=== PATIENT | female | born 1960 | race Caucasian/White ===

== ENCOUNTER 2016-12-17 19:59 | Emergency (ER) | payer OTHER ==
[~2016-12-17] VITALS: Ht 162.6 cm; Wt 73.6 kg
[~2016-12-17 19:59] MED LIST changes: -AGMUDL4005 PO; -NITR-5 PO
[2016-12-17 20:02] VITALS: BP 138/87; TEMP 37.2; Ht 162.6 cm; Wt 73.6 kg
--- NOTE | 2016-12-17 20:32 | EMERGENCY ROOM VISIT NOTE ---
History Report prepared by Brigid: Arlen Khan Under the Supervision of: Dr. Ayaan Marino M.D. First contact with patient: 20:08 Chief Complaint: URINARY SYMPTOMS Stated Complaint: PAIN IN STOMACH, HEADACHE, WEAKNESS Nursing Triage Summary: Patient states "I'm just been not feeling well. I went and got one of those OTC urinary tract things and it was positive. My sister in law is a nurse practitioner and said I need to get an antibiotic tonight." History of Present Illness The patient is a 56 year old female who presents to the Emergency Room with complaints of worsening urinary symptoms that started this morning. She is experiencing heaviness in her groin and increased urinary frequency. She denies burning with urination. The patient states that she took an hudv-rdq-atqjsoo urinary tract test and it was positive. Her vurvqq-la-fwt is a nurse practitioner and recommended that she come into the ED to get antibiotics. She is also experiencing a headache and "shakes." She denies abdominal pain and back pain. She also denies lower extremity pain or edema. The patient denies bruising, bleeding, or hitting her head recently. The patient adds that she had blood work done earlier today as part of a routine checkup. Source of History: patient Onset: this morning Quality: other (urinary symptoms) Timing: worsening Associated Symptoms: + headache, No abdominal pain, No back pain Note: "shakes", heaviness in groin, no lower extremity pain or edema Review of Systems See HPI for pertinent positives & negatives. A total of 10 systems reviewed and were otherwise negative. Past Medical & Surgical Medical Problems: (1) Parathyroid disorder Surgical Problems: (1) History of dilation and curettage (2) History of foot surgery Old medical records were reviewed. Nurse's notes were reviewed and I agree with. No history of blood clotting disorders. Family History Diabetes mellitus Heart disease Social History Smoking Status: Never Smoker Alcohol Use: occasionally Drug Use: none Marital Status: Housing Status: lives with family Occupation Status: employed Current/Historical Medications Scheduled Amoxicillin/Clavulanate Potas (Augmentin 400MG/5ML), 10 ML PO BID Cholecalciferol (Vitamin D), 1,000 INTER.UNIT PO DAILY Ranitidine Hcl (Zantac), 10 ML PO DAILY [Fish Oil], 5 ML PO DAILY [Iron], 1 TAB PO DAILY Scheduled PRN Ondansetron (Zofran Odt), 4 MG SL Q6 PRN for Nausea or Vomiting Allergies Uncoded Allergies: N (Allergy, Unknown, 12/29/02) SEASONAL (Allergy, Unknown, 12/29/02) VANTA (Allergy, Unknown, 12/29/02) Physical Exam Vital Signs Date Time Temp Pulse Resp B/P Pulse Ox O2 Delivery O2 Flow Rate FiO2 12/17/16 21:40 78 18 98 12/17/16 20:02 37.2 86 18 138/87 99 Room Air Physical Exam General: Well developed well nourished non-ill appearing middle-aged female in no acute distress, breathing comfortably on room air. Normal speech HEENT: Normal cephalic atraumatic. Pupils are equal round and reactive to light. Extraocular movements are intact. Oropharynx is pink with moist mucous membranes. No swelling of the mouth lips or tongue. Neck: Supple with a midline trachea. No meningeal signs or stiffness, no JVD or bruits. No Stridor. Chest: Clear to auscultation bilaterally. No wheezes or rhonchi. No increased work of breathing. Heart: regular rate and rhythm. Abdomen: Soft nontender, nondistended without rebound guarding or rigidity. Extremities: No cyanosis clubbing or edema. No calf tenderness or assymetry Spine/Back. Non tender to palpation. No CVA tenderness Skin: Good turgor without rashes. No petechiae. Chronic skin lesions which are unchanged. Neurologic exam: Cranial nerves two through 12 are intact. Motor and sensation are intact and symmetrical throughout. Medical Decision & Procedures Laboratory Results Test 12/17/16 20:15 Urine Color YELLOW Urine Appearance CLEAR (CLEAR) Urine pH 7.5 (4.5-7.5) Urine Specific [place] 1.010 (1.000-1.030) Urine Protein NEG (NEG) Urine Glucose (UA) NEG (NEG) Urine Ketones NEG (NEG) Urine Occult Blood NEG (NEG) Urine Nitrite NEG (NEG) Urine Bilirubin NEG (NEG) Urine Urobilinogen NEG (NEG) Urine Leukocyte Esterase LARGE (NEG) Urine WBC (Auto) 10-30 /hpf (0-5) Urine RBC (Auto) 0-4 /hpf (0-4) Urine Hyaline Casts (Auto) 1-5 /lpf (0-5) Urine Epithelial Cells (Auto) >30 /lpf (0-5) Urine Bacteria (Auto) NEG (NEG) Laboratory studies as stated above per my review. Medications Administered Medications (Trade) Dose Ordered Sig/Joleen Route Start Time Stop Time Status Last Admin Dose Admin Amoxicillin/ Clavulanate Potassium (Augmentin Susp) 10 ml NOW ONCE PO 12/17/16 21:15 12/17/16 21:16 DC 12/17/16 21:15 10 ML ED Course 2010: Past medical records reviewed. The patient was evaluated in room D7, and a complete history and physical examination were performed. 2045: I discussed the patient's case with the pharmacist who is going to give a recommendation on what is going to affect platelets levels the least. 2100: The pharmacist called back and recommended Macrobid. 2105: Upon reevaluation, the patient is doing well. She informed me that she has trouble swallowing pills due to esophageal web so I am going to change her prescription to Augmentin. I discussed the results and treatment plan with the patient and her . They verbalized agreement of the treatment plan. The patient was discharged home. 2114: Ordered Augmentin Susp 10 ml PO Medical Decision Differentials include, but are not limited to; UTI, infection, hematologic problem. This patient comes in as described above.a She's concerned that she has UTI she feels generally weak but looks okay on exam. She did have blood work drawn today which showed normal PTH and her ionized calcium is pending. She does have a mildly low white count as well as platelets. She has no petechiae. I have no old labs for comparison. This may warrant further hematologic workup and I told her to follow with her doctor who ordered these and ensure she follows up this week. She may need need to have blood work rechecked or further testing in regards to urinary symptoms she has no evidence suggest pyelonephritis a did a urine dip as well as UA and culture. Her urinalysis does suggest a UTI. Her symptoms also go along with this she is nontoxic. Initially, I wrote her for Macrobid however she tells me is that she can only take liquids as she has an esophageal web. In light of this, I gave her Augmentin suspension 10 mL twice a day with a home pack and a prescription for 5 days she'll take a course of 7 days. I talked to the patient length as well as her told her sure she follows up with her doctor tomorrow for her blood work that she has her platelets are low and she will need follow-up with this. She may need further workup for this as well. She should return if : worsening of symptoms, bleeding, fever, back pain, any problems or concerns. The patient and her were happy with the plan and she was discharged home. Impression Primary Impression: Urinary tract infection Additional Impression: Thrombocytopenia Scribe Attestation The scribe's documentation has been prepared under my direction and personally reviewed by me in its entirety. I confirm that the note above accurately reflects all work, treatment, procedures, and medical decision making performed by me. Departure Information Dispostion Home / Self-Care Prescriptions Amoxicillin/Clavulanate Potas (AUGMENTIN 400MG/5ML) 400 Mg/5 Ml Susp 10 ML PO BID for 5 Days, #100 ML Prov: Ayaan Marino M.D. 12/17/16 Referrals No Doctor, Assigned (PCP) Forms HOME CARE DOCUMENTATION FORM, IMPORTANT VISIT INFORMATION Patient Instructions My [facility] Additional Instructions Rest Drink plenty of fluids REturn if: worsening of symptoms, fever, back pain, brusing, any new problems or concerns Follow-up with your doctor tommorrow for follow-up on your blood work and recheck Problem Qualifiers
[2016-12-17 20:41] LABS: URINE APPEARANCE CLEAR (CLEAR); URINE BILIRUBIN NEG (NEG); URINE COLOR YELLOW; URINE EPITHELIAL CELL AUTO >30 /lpf (0-5); URINE NITRITE NEG (NEG); URINE PH 7.5 (4.5-7.5); UROBILINOGEN NEG (NEG)
[2016-12-17 20:53] LABS: MANUAL MICROSCOPIC REQUIRED? NO; REVIEW REQ? NO
[2016-12-17] MEDS ORDERED: NITR-5 PO (21:04)
[2016-12-17] MEDS ORDERED: AGMUDL4005 PO (21:13)
[2016-12-17] MEDS ORDERED: AMOXICILLIN/CLAVULANATE SUSP 400 MG/5 ML PO ONE (21:15)
[2016-12-17] MEDS ORDERED: NITROFURANTOIN MONOHYDRATE 100 MG CAP PO ONE (21:15)
[2016-12-17 21:40] VITALS: PULSE 78; O2SAT 98
== END 2016-12-17 21:42 | disposition home or self-care (01) ==
LOC: C.EDB 20:00 → C.EDD 21:42
DX: N39.0 Urinary tract infection, site not specified (principal); D69.6 Thrombocytopenia, unspecified

== ENCOUNTER → 2016-12-17 | Outpatient (CLI) | payer OTHER ==
[~2016-12-17] MED LIST: AGMUDL4005 PO; CHOL100010 PO; FISHOIL PO; IRON PO; NITR-5 PO; ONDA4TAB7 SL; RANI15SY5 PO
[2016-12-17 13:43] LABS: CHOLESTEROL/HDL RATIO 4.5
[2016-12-17 14:05] LABS: BASO % 1.8 %; BASO ABS # 0.06 K/uL (0-0.2); COMPLETE YES; EOS % 3.6 %; HEMATOCRIT 42.3 % (37-47); IG% 0.6 %; LYMPH % 33.5 %; LYMPH ABS # 1.12 K/uL (1.2-3.4); MEAN CELL VOLUME 87.2 fL (80-100); MEAN CORPUSCULAR HEMOGLOBIN 30.1 pg (25-34); MEAN CORPUSCULAR HGB CONC 34.5 g/dl (32-36); MEAN PLATELET VOLUME 10.5 fL (7.4-10.4); MONO % 8.4 %; NEUT % 52.1 %; PLATELET COUNT 83 K/uL (130-400); RED BLOOD COUNT 4.85 M/uL (4.2-5.4); WHITE BLOOD COUNT 3.34 K/uL (4.8-10.8)
[2016-12-17 14:06] LABS: PLT ESTIMATE DECREASED
[2016-12-18 07:43] LABS: VACUOLIZATION 3+
== END | disposition home or self-care (01) ==
LOC: C.LABMFLN 16:16
PROVIDERS: ATTEND Family Medicine
DX: E61.1 Iron deficiency (principal); E21.3 Hyperparathyroidism, unspecified; E78.00 Pure hypercholesterolemia, unspecified

== ENCOUNTER → 2016-12-25 | Outpatient (CLI) | payer OTHER ==
--- NOTE | 2016-12-25 12:36 | MAMMOGRAPHY REPORT ---
BILATERAL DIGITAL SCREENING MAMMOGRAM TOMOSYNTHESIS WITH CAD: 12/25/2016 CLINICAL HISTORY: Routine screening. Patient has no complaints. TECHNIQUE: Breast tomosynthesis in addition to standard 2D mammography was performed. Current study was also evaluated with a Computer Aided Detection (CAD) system. COMPARISON: Comparison is made to exams dated: 11/06/2014 mammogram, 08/16/2013 mammogram, 03/15/2014 mammogram, 08/22/2013 mammogram, and 12/27/2010 mammogram - [facility]. BREAST COMPOSITION: There are scattered areas of fibroglandular density in both breasts. FINDINGS: No suspicious masses, calcifications, or areas of architectural distortion are noted in e ither breast. There has been no significant interval change compared to prior exams. IMPRESSION: ACR BI-RADS CATEGORY 1: NEGATIVE There is no mammographic evidence of malignancy. A 1 year screening mammogram is recommended. The p atient will receive written notification of the results. Approximately 10% of breast cancers are not detected with mammography. A negative mammographic repor t should not delay biopsy if a clinically suggestive mass is present. Kiera Card M.D. ah/:12/25/2016 07:46:36 Tieing Machine Operator: Lillian GARCIA(Susanne)(M), [facility] letter sent: Normal 1/2 BI-RADS Code: ACR BI-RADS Category 1: Negative
== END | disposition home or self-care (01) ==
LOC: C.MAMM 07:32
PROVIDERS: ATTEND Family Medicine
DX: Z12.31 Encounter for screening mammogram for malignant neoplasm of breast (principal)

== ENCOUNTER → 2017-01-06 | Outpatient (CLI) | payer OTHER ==
[2017-01-06 13:34] LABS: HEMATOCRIT 39.9 % (37-47); MEAN CELL VOLUME 87.5 fL (80-100); MEAN CORPUSCULAR HEMOGLOBIN 29.8 pg (25-34); MEAN CORPUSCULAR HGB CONC 34.1 g/dl (32-36); MEAN PLATELET VOLUME 10.4 fL (7.4-10.4); PLATELET COUNT 133 K/uL (130-400); RED BLOOD COUNT 4.56 M/uL (4.2-5.4); WHITE BLOOD COUNT 4.21 K/uL (4.8-10.8)
[2017-01-06 14:08] LABS: BASO ABS # 0.04 K/uL (0-0.2); BASOPHIL % 0.9 %; COMPLETE YES; EOSINOPHIL % 0.9 %; LYMPH ABS # 0.88 K/uL (1.2-3.4); LYMPHOCYTE % 20.9 %; NEUTROPHILS % 39.9 %; VACUOLIZATION 1+; VARIANT LYM ABS # 1.36 K/uL; VARIANT LYMPHOCYTE % 32.2 %
== END | disposition home or self-care (01) ==
LOC: C.LABMFLN 10:28
PROVIDERS: ATTEND Family Medicine
DX: D70.9 Neutropenia, unspecified (principal); D69.6 Thrombocytopenia, unspecified

== ENCOUNTER → 2017-01-07 | Outpatient (CLI) | payer OTHER | END | disposition home or self-care (01) | LOC: C.LABMFLN 07:57 | PROVIDERS: ATTEND Family Medicine | DX: D70.9 Neutropenia, unspecified (principal); D69.6 Thrombocytopenia, unspecified ==

== ENCOUNTER → 2017-08-27 | Outpatient (CLI) | payer OTHER ==
[2017-08-27 12:45] LABS: URINE APPEARANCE CLEAR (CLEAR); URINE BILIRUBIN NEG (NEG); URINE COLOR YELLOW; URINE EPITHELIAL CELL AUTO >30 /lpf (0-5); URINE NITRITE NEG (NEG); URINE PH 7.5 (4.5-7.5); URINE SPECIFIC GRAVITY 1.011 (1.000-1.030); UROBILINOGEN NEG (NEG)
[2017-08-27 12:48] LABS: MANUAL MICROSCOPIC REQUIRED? NO; REVIEW REQ? NO
== END | disposition home or self-care (01) ==
LOC: C.LABPVFM 08:38
PROVIDERS: ATTEND Family Medicine
DX: R30.0 Dysuria (principal)

== ENCOUNTER → 2017-11-26 | Outpatient (CLI) | payer OTHER ==
[2017-11-26 12:38] LABS: BASO % 0.5 %; BASO ABS # 0.02 K/uL (0-0.2); EOS % 1.6 %; EOS ABS # 0.07 K/uL (0-0.5); HEMATOCRIT 43.8 % (37-47); IG# 0.01 K/uL (0.00-0.02); LYMPH % 34.8 %; LYMPH ABS # 1.49 K/uL (1.2-3.4); MEAN CELL VOLUME 90.3 fL (80-100); MEAN CORPUSCULAR HEMOGLOBIN 30.9 pg (25-34); MEAN CORPUSCULAR HGB CONC 34.2 g/dl (32-36); MEAN PLATELET VOLUME 9.8 fL (7.4-10.4); MONO % 9.1 %; MONO ABS # 0.39 K/uL (0.11-0.59); NEUT % 53.8 %; PLATELET COUNT 192 K/uL (130-400); RED CELL DISTRIBUTION WIDTH CV 13.4 % (11.5-14.5); RED CELL DISTRIBUTION WIDTH SD 43.8 fL (36.4-46.3); WHITE BLOOD COUNT 4.28 K/uL (4.8-10.8)
== END | disposition home or self-care (01) ==
LOC: C.LABMFLN 08:48
PROVIDERS: ATTEND Family Medicine
DX: E55.9 Vitamin D deficiency, unspecified (principal); D69.6 Thrombocytopenia, unspecified; R22.1 Localized swelling, mass and lump, neck; E61.1 Iron deficiency

== ENCOUNTER → 2017-12-17 | Outpatient (CLI) | payer OTHER ==
[2017-12-17 13:13] LABS: BLOOD UREA NITROGEN 11 mg/dl (7-18); CALCIUM 9.5 mg/dl (8.5-10.1); CARBON DIOXIDE 27 mmol/L (21-32); GLUCOSE 105 mg/dl (70-99); POTASSIUM 4.1 mmol/L (3.5-5.1); SODIUM 138 mmol/L (136-145)
== END | disposition home or self-care (01) ==
LOC: C.LABMFLN 08:55
PROVIDERS: ATTEND Family Medicine
DX: R00.2 Palpitations (principal)